=== PATIENT | male | born 1980 | race Two or more races ===

== ENCOUNTER 2017-09-23 04:49 | Emergency (ER) | payer SELFPAY ==
[~2017-09-23] VITALS: Ht 172.7 cm; Wt 88.0 kg
[2017-09-23 04:52] VITALS: BP 120/77
== END 2017-09-23 06:20 | disposition left against medical advice (07) ==
LOC: ED 06:14
DX: R06.02 Shortness of breath (principal)
CPT/HCPCS: 93005; 99281